=== PATIENT | female | born 2005 | race Hispanic/Latino ===

== ENCOUNTER → 2024-11-01 10:50 | Outpatient (CLI) | payer OTHER, SELFPAY ==
[2024-11-01 12:00] LABS: Add Manual Diff / Slide Review NO; Basophils Absolute Auto 0 /uL (0-100); Basophils Percent Auto 0.4 % (0-2); Eosinophils Absolute Auto 0 /uL (0-450); Eosinophils Percent Auto 0.5 % (2-4); Hematocrit 38.2 % (36-46); Hemoglobin 12.8 g/dL (12.0-16.0); Lymphocytes Absolute Auto 2400 /uL (1100-4500); Lymphocytes Percent Auto 47.8 % (25-40); Mean Corpuscular HGB Conc 33.6 % (30-36); Mean Corpuscular Hemoglobin 30.1 PG (26-34); Mean Corpuscular Volume 89.6 fL (80-100); Monocytes Absolute Auto 300 /uL (0-900); Monocytes Percent Auto 5.9 % (3-14); Neutrophils Absolute Auto 2300 /uL (1500-7000); Neutrophils Percent Auto 45.4 % (50-75); Platelet Count 242 X10^3/uL (150-400); Red Blood Cell Count 4.26 X10^6/uL (4.0-5.2); Red Cell Distribution Width 15.1 % (11.6-14.8); White Blood Cell Count 5.1 X10^3/uL (4.5-11.0)
[2024-11-01 12:01] LABS: Appearance Urine UA CLEAR; Bilirubin Urine UA NEGATIVE (NEGATIVE); Color Urine UA YELLOW; Glucose Urine UA NEGATIVE (Negative); Ketones Urine UA NEGATIVE (NEGATIVE); Leukocyte Esterase Urine UA TRACE (NEGATIVE); Nitrite Urine UA NEGATIVE (Negative); Occult Blood Urine UA TRACE-INTACT (Negative); Protein Urine UA NEGATIVE (Negative); Specific Gravity Urine UA <=1.005 (1.000-1.035); Urobilinogen Urine UA 0.2 E.U./dL (0.2)
[2024-11-01 12:15] LABS: Bacteria Urine Occasional (0-1); RBC Urine 1-5/HPF (0-5/HPF); Squamous Epithelial Cell Urine 1-5 /HPF (0-5/HPF); Urine Volume 10mL (spun); WBC Urine 1-5/HPF (0-5/HPF)
[2024-11-01 15:18] LABS: Hepatitis B Surface Antigen NEGATIVE s/c (NEGATIVE); Rubella Antibody IgG 13.9 IU/mL (>15)
[2024-11-01 15:30] LABS: HIV 1 & 2 Ab/Ag 4th Gen Combo NEGATIVE (NEGATIVE); Hep C Virus Ab w/Reflex Quant NEGATIVE s/c (NEGATIVE)
[2024-11-02 06:05] LABS: RPR Screen Non Reactive (Non Reactive)
[2024-11-02 10:08] LABS: Varicella IgG Antibody Non Reactive (Non Reactive)
== END ==
LOC: LAB 10:51
PROVIDERS: Referring Provider Family Medicine; Visit Provider Family Medicine
DX: Z34.00 Encounter for supervision of normal first pregnancy, unspecified trimester (principal)
CPT/HCPCS: 36415; 80055; 81003; 81015; 86787; 86803; 86850; 86900; 86901; 87086; 87389

== ENCOUNTER → 2025-01-01 11:33 | Outpatient (CLI) | payer OTHER, SELFPAY ==
[2025-01-03 20:36] LABS: AFP, Serum 35.6 ng/mL (.); Calc Gestational Age As provided (.); Estriol, Free 1.69 ng/mL (.); Inhibin A, Dimeric 239.84 pg/mL (.); Inhibin A, MoM 1.42 (.); Maternal Ethnicity Other (.); Maternal Weight 136 lbs (.); Number of Fetuses No (.); OSBR Risk 1 IN 10000 (.); Results Report (.); Test Results *Screen Negative* (.); hCG, Serum 59654 mIU/mL (.)
== END ==
PROVIDERS: Referring Provider Family Medicine; Visit Provider Family Medicine
DX: Z34.00 Encounter for supervision of normal first pregnancy, unspecified trimester (principal)
CPT/HCPCS: 36415; 82105; 82677; 84702; 86336

== ENCOUNTER → 2025-02-05 06:42 | Outpatient (CLI) | payer OTHER, SELFPAY ==
--- NOTE | 2025-02-05 06:43 | DI.US.S_ITS ---
PROCEDURE: US OB >= 14 WEEKS FETUS INDICATIONS: Anatomy Scan complete OUTSIDE/PRIOR DATING DATA: Last menstrual period (LMP): 09/08/2024. LMP-based estimated date of delivery (TRACE): 06/06/2025. First dating scan (date and location): 11/01/2024. Estimated date of delivery (TRACE) from first dating scan: 06/14/2025. The calculations are made using the ultrasound TRACE of 06/14/2025. TECHNIQUE: Real-time scanning was performed of the fetus, with image documentation and biometric measurements. COMPARISON: None. FINDINGS: General: A single living intrauterine gestation is present. Presentation: Vertex. Placenta: Placental position is posterior , without previa. Amniotic fluid index: 13.4 cm, normal range is 5-24 cm. Single deepest vertical pocket is 3.6 cm. heart rate: 145 beats per minute. Maternal cervical canal: 3.3 cm long. Normal lower limit is 2.5 cm. biometrics: Biparietal diameter: 5.1 cm 21 weeks 4 days Head circumference: 19.5 cm 21 weeks 5 days Abdominal circumference: 16.4 cm 21 weeks 3 days Femur length: 3.7 cm 21 weeks 6 days Clinically estimated gestational age: 21 weeks 4 days Composite gestational age from present scan: 21 weeks 5 days Estimated weight and percentile: 439 g 48th percentile Anatomic survey: Neuro: Ventricles are non-dilated at less than 10 mm. Cisterna magna is normal at 3-11 mm. Cerebellum is normal in size and morphology. Nuchal skin fold: Normal at less than 6 mm between 14-21 weeks gestational age. Face: Nose and lips, facial profile are normal. Spine: No evidence for spina bifida. Heart: 4-chambered heart is present, with normal ventricular outflow tracts. Diaphragm: Diaphragm is intact. Stomach: Left-sided stomach is present. Kidneys: No hydronephrosis. Normal is less than 5 mm in 2nd trimester, less than 7 mm in 3rd trimester. Cord: 3-vessel cord has orthotopic insertion. Bladder: Normal in size. Extremities: All 4 extremities identified. IMPRESSION: Single live intrauterine with gestational age today of 21 weeks 5 days. Anatomy is within normal limits. We strive to produce accurate, complete, and clear reports of imaging services. To assist us in improving patient care, this report was composed using standard report templates and voice recognition software. Therefore, it may contain abnormal punctuation, insertions and/or omissions. Occasional wrong-word or sound-alike substitutions may occur. Though we review the report and make efforts to correct it, we do recommend that the report be read carefully in proper context to recognize any text inaccuracies. Dictated by: Jasmyne Cartwright M.D. on 02/05/2025 at 13:19 Approved by: Jasmyne Cartwright M.D. on 02/05/2025 at 13:21
== END ==
PROVIDERS: Referring Provider Family Medicine; Visit Provider Family Medicine
DX: Z36.89 Encounter for other specified antenatal screening (principal); Z3A.21 21 weeks gestation of pregnancy
CPT/HCPCS: 76811

== ENCOUNTER → 2025-03-01 07:53 | Outpatient (CLI) | payer OTHER, SELFPAY ==
[2025-03-01 09:35] LABS: Hematocrit 30.9 % (36-46); Hemoglobin 10.7 g/dL (12.0-16.0)
[2025-03-01 10:16] LABS: GTT (PREG) 1 Hour PP 50gm Dose 109 mg/dL (76-139)
== END ==
PROVIDERS: PCP Family Medicine; Referring Provider Family Medicine; Visit Provider Family Medicine
DX: Z34.92 Encounter for supervision of normal pregnancy, unspecified, second trimester (principal)
CPT/HCPCS: 36415; 82950; 85014; 85018

== ENCOUNTER 2025-05-30 00:49 | Observation (INO) | payer OTHER, SELFPAY | END 2025-05-30 03:03 | disposition home or self-care (01) | LOC: LABOR 00:51 | PROVIDERS: Admitting Provider Obstetrics & Gynecology; PCP Family Medicine; Referring Provider Obstetrics & Gynecology; Visit Provider Obstetrics & Gynecology | DX: O47.1 False labor at or after 37 completed weeks of gestation (principal); Z3A.37 37 weeks gestation of pregnancy | CPT/HCPCS: 59025; G0378; G0379 ==

== ENCOUNTER 2025-06-04 02:09 | Outpatient (CLI) | payer OTHER, SELFPAY | END 2025-06-04 03:53 | disposition home or self-care (01) | LOC: OB 06:35 | PROVIDERS: PCP Family Medicine; Referring Provider Family Medicine; Visit Provider Family Medicine | DX: O36.8130 Decreased fetal movements, third trimester, not applicable or unspecified (principal); O47.1 False labor at or after 37 completed weeks of gestation; O99.213 Obesity complicating pregnancy, third trimester; E66.9 Obesity, unspecified; Z3A.38 38 weeks gestation of pregnancy | CPT/HCPCS: 59025; G0378; G0379 ==

== ENCOUNTER 2025-06-05 18:35 | Outpatient (CLI) | payer OTHER, SELFPAY | END 2025-06-05 19:49 | disposition home or self-care (01) | LOC: LABOR 18:46 → OB 06-06 06:16 | PROVIDERS: PCP Family Medicine; Referring Provider Family Medicine; Visit Provider Family Medicine | DX: O47.1 False labor at or after 37 completed weeks of gestation (principal); Z3A.38 38 weeks gestation of pregnancy | CPT/HCPCS: 59025; G0378; G0379 ==

== ENCOUNTER 2025-06-08 23:03 | Inpatient (IN) | payer OTHER, SELFPAY ==
[2025-06-08] MEDS: LACTATED RINGERS 1,000 ML 100 ML IV (23:30)
[2025-06-08 23:50] LABS: Add Manual Diff / Slide Review NO; Hematocrit 39.5 % (36-46); Hemoglobin 13.6 g/dL (12.0-16.0); Lymphocytes Absolute Auto 3600 /uL (1100-4500); Mean Corpuscular HGB Conc 34.3 % (30-36); Mean Corpuscular Hemoglobin 31.7 PG (26-34); Mean Corpuscular Volume 92.6 fL (80-100); Platelet Count 186 X10^3/uL (150-400)
--- NOTE | 2025-06-09 00:23 | PM.AN.REGBLK ---
Regional Block Pre-procedure Procedure: Continuous Lumbar Epidural for L&D PMH/ROS narrative: active labor PSH/Anesthesia history narrative: pt states difficulty getting numb for dental work, otherwise no issues with anesthesia ASA Class: II Labs: Hct 39.5 % (36-46) 06/08/25 23:41 Plt Count 186 X10^3/uL (150-400) 06/08/25 23:41 Medications: Current Medications Generic Name Dose Route Start Last Admin Trade Name Freq PRN Reason Stop Dose Admin Carboprost Tromethamine 250 mcg 06/08/25 23:40 Carboprost 250 Mcg/Ml Ampul IM Q90M PRN Bleeding Oxytocin/Lactated Ringer's 30 unit in 500 mls @ 200 mls/hr 06/08/25 23:40 Oxytocin Premix IV CONT PRN Bleeding Protocol Tranexamic Acid 1,000 mg/ 100 mls @ 600 mls/hr 06/08/25 23:40 Sodium Chloride IV NOW PRN Bleeding Lactated Ringer's 1,000 mls @ 100 mls/hr 06/08/25 23:45 Lactated Ringers IV 06/09/25 09:44 CONT ZAID Lidocaine HCl 20 ml 06/08/25 23:40 Lidocaine 1% 20 Ml INJ INTRA-OP PRN Post Delivery Methylergonovine Maleate 0.2 mg 06/08/25 23:40 Methylergonovine 0.2 Mg Tablet PO Q6HR PRN Heavy Bleeding Methylergonovine Maleate 0.2 mg 06/08/25 23:40 Methylergonovine 0.2 Mg/Ml Vial IM NOW PRN Bleeding Mineral Oil 30 ml 06/08/25 23:40 Mineral Oil 30 Ml Udc TOP PRN PRN Version Misoprostol 800 mcg 06/08/25 23:40 Misoprostol 200 Mcg Tablet PA NOW PRN Bleeding Misoprostol 400 mcg 06/08/25 23:40 Misoprostol 200 Mcg Tablet SL NOW PRN Bleeding Naloxone HCl 0.2 mg 06/08/25 23:40 Naloxone 0.4 Mg/Ml Vial IV Q2MIN PRN Opiate Reversal Oxytocin 10 unit 06/08/25 23:40 Oxytocin 10 Unit/Ml Vial IM NOW PRN Bleeding Allergies: Allergies Allergy/AdvReac Type Severity Reaction Status Date / Time No Known Drug Allergies Allergy Verified 06/05/25 19:53 --: h and p obstained. rba discussed. pt consent to proceed. drape and prep using sterile technique. l3 l4 is id'd. lido 1% 3 cc skin wheel with tuohy introducer. WAYNE to saline. used 27 g pencil point needle + csf at 0008, lido 1% 0.5 mL injected into intrathecal space, negative heme and negative paresthesias. threaded catheter and test dose. secured sterile with tega derm. Procedure Insertion date: 06/09/25 Insertion time: 00:09 Prep/Local: betadine x3 (chloraprep) and 1% lidocaine (3 cc) Interspace: l3 l4 Patient position: sitting Needle: 18 gauge Stacia Loss of resistance with: saline WAYNE at (cm): 6 Catheter placed at SKIN (cm): 12 Sensory level: t8 Insertion: No CSF, No Blood, No Paresthesia with insertion, No Paresthesia with injection and No Test dose reaction Initial Medications BOLUS DOSE time: 00:14 BOLUS DOSE (mL): 3 BOLUS DOSE med: other (infusate) Infusion INFUSION: 0.125% bupivacaine and with fentanyl 2 mcg/mL Initial rate (mL/hr): 8 Post-procedure Anesthesia date START: 06/08/25 Anesthesia time START: 23:56 Anesthesia date END: 06/09/25 Anesthesia time END: 07:54 Post-procedure Anesthesia Assessment: Yes CV function: HR/BP stable, Yes Resp function: RR/sat/airway adequate, Yes Post-op hydration adequate, Yes Pain control adequate, Yes Nausea & vomiting absent, Yes Temperature > 36 C, Yes Mental status appropriate and Yes Anesthesia complications
[2025-06-09 01:54] VITALS: BP 106/55
[2025-06-09] MEDS: LACTATED RINGERS 1,000 ML 100 ML IV ×2 (06:10→06:11)
[2025-06-09] MEDS: FENT 2MCG/ML BUPIV 0.125% EPI 200 MCG/100 ML PLAST..BAG 8 MCG EPIDURAL (06:25)
--- NOTE | 2025-06-09 08:26 | P.PCNOB_ITS ---
Labor & Delivery Delivery date: 06/09/25 Delivery Time: 07:44 Intrapartal Events: None Induction method: none Delivery monitor: external FHT Route of delivery: L&D Laceration Description: Perineal - 1st Degree Estimated blood loss (mL): 150 Anesthesia Type: Epidural Complications: none Narrative: PROCEDURE: 20 yo G1 at 39w2d presented with MANAN and was admitted to Labor and Delivery. She was managed expectantly. The patient progressed through the 1st stage over. ROM occured at 01:03 with clear fluid. Pain was controlled with epidural. The patient progressed through the 2nd stage and delivered a viable female with APGARs 8/9 at 07:44 via SHEYLA. The cord was cut and clamped after it stopped pulsating. The placenta delivered with gentle cord traction, and appeared complete. The perineum and vagina were inspected with a 1st degree perineal that was repaired in the usual fashion. Needle and sponge counts were correct.? The vagina was inspected and no items were left in situ. PREPROCEDURE DIAGNOSIS: Intrauterine at 39w2d GBS neg RH positive POSTPROCEDURE DIAGNOSIS: Intrauterine at 39w2d, delivered Same as preprocedure [place] Baby Avalynn: gender: Female Presentation: vertex Position: Left Occiput Anterior Placenta delivery description: Spontaneous Cord Vessel Description: 3 Vessels score (1 min): 8 score (5 min): 9 Plan for aftercare: Routine care
--- NOTE | 2025-06-09 08:34 | PM.OBHP.IH.1 ---
OB HPI Date/Time Date of admission: 06/08/25 Date Patient Seen: 06/09/25 Time Patient Seen: 07:30 History of Present Condition Chief complaint: NST TRACE Calculator Estimated Delivery Date Method Current WG Current Estimate 06/14/25 Ultrasound #1 39w 2d Other Estimates 06/06/25 LMP (Certain) 40w 3d Estimated Gestational Age (weeks): 39w2d : 1 care: good care Dating criteria OB: based on 1st trimester US only Obstetrical complications: none Medical complications OB: none Preadmission Labs Last OB Lab Results: Blood Type A Positive 06/08/25, 23:41 Antibody Screen Negative 06/08/25, 23:41 Hct, (36-46) 39.5 % 06/08/25, 23:41 Hgb, (12.0-16.0) 13.6 g/dL 06/08/25, 23:41 Hep Bs Antigen, (NEGATIVE) Negative s/c 11/01/24, 10:54 Hepatitis C Antibody, (NEGATIVE) Negative s/c 11/01/24, 10:54 Rubella Antibody, (>15) 13.9 IU/mL L 11/01/24, 10:54 VZV IgG Antibody, (Non Reactive) Non reactive 11/01/24, 10:54 Glucose 1 Hr 50 gm, (76-139) 109 mg/dL 03/01/25, 09:01 Group B Strep (PCR) Neg for grp b strep 05/21/25, 12:00 Evaluation Evaluation Baseline heart rate: 140 Variability: Moderate (6-25) monitor accelerations: Present Monitor Decelerations: Absent Contraction Frequency (minutes): 2 Uterine Contraction Intensity: Strong/Firm Category of Tracing: Reactive Status: Category l Dilation (cm): 7 Effacement (%): 100 Dilation: >/=5 cm Effacement: >/=80% station: -1 [facility] Medical History (Updated 06/05/25 @ 10:47 by Stephan Michaud MD) Wrist fracture Menorrhagia Ovarian cyst (~2022) Surgical History (Updated 10/22/24 @ 15:09 by Lily Velasco, STEVO) No pertinent past surgical history Family History (Updated 10/22/24 @ 15:11 by Lily Velasco, STEVO) Sister Gestational diabetes PCOS (polycystic ovarian syndrome) Mother Gestational diabetes Ovarian cyst Grandmother Kidney stones Father Family estrangement Social History marital status: number of children: 0 household members: spouse lives independently: Yes [facility] pets and animals: No education level: high school occupational status: unemployed current occupational exposures/hazards: No special ruma needs: No travel history: recent (domestic only) seatbelt use: always water heater temp set < 120 deg: Yes working smoke detector in home: Yes fire extinguisher in home: Yes carbon monox detector in home: Yes firearms in home: No do you feel safe at home: Yes Smoking Status: Never smoker second hand exposure: No alcohol intake: never substance use type: does not use during the past year weight has: remained stable well-balanced diet: daily or most days daily servings fruits/ve-4 caffeine: No Type(s) of exercise: other (stretching) and running Meds Home Medications and Allergies Home Medications ?Medication ?Instructions ?Recorded ?Confirmed ?Type vitamin-ferrous sulfate 1 tab PO DAILY 10/22/24 06/09/25 History 27 mg iron-folic acid 0.8 mg tablet ferrous sulfate 134 mg (27 mg 134 mg PO Q OTHER DAY #60 tabs 03/26/25 06/09/25 Rx iron) tablet electric breast pump #1 ea 05/28/25 Rx Allergies Allergy/AdvReac Type Severity Reaction Status Date / Time No Known Drug Allergies Allergy Verified 06/09/25 01:53 Review of Systems Review of Systems Narrative: + regular contractions - LOF + movement - vaginal bleeding OB Exam Narrative Exam Narrative: GEN: uncomfortable appearing, breathing through contractions, Pulm: breathing comfortably on RA ABd: gravid MSK: laying in bed, moving all extremities neuro: non-focal Objective Labs 06/08/25 23:41 Labs: Laboratory Results - last 24 hr 06/08/25 23:41 WBC 9.7 RBC 4.27 Hgb 13.6 Hct 39.5 MCV 92.6 MCH 31.7 MCHC 34.3 RDW 15.1 H Plt Count 186 Neut % (Auto) 55.4 Lymph % (Auto) 36.8 [place] % (Auto) 6.3 Eos % (Auto) 0.6 L Baso % (Auto) 0.9 Neut # (Auto) 5400 Lymph # (Auto) 3600 [place] # (Auto) 600 Eos # (Auto) 100 Baso # (Auto) 100 Blood Type A Positive Antibody Screen Negative Assessment and Plan Assessment and Plan Assessment and Plan narrative: 20 yo G1 presenting at 29w1d with MANAN, managed expectantly overnight, now 39w2d and complete/+3 ready for delivery # SIUP at term: - admit to LD - continuous monitoring - Anesthesia consult - CBC, TS - GBS negative Time-Based Coding :: [TOTAL MINUTES] spent with patient and on the chart (including review of chart, obtaining history, exam, reviewing outside data, placing orders, documenting exam and treatment plan, and counseling patient) on [DATE].
[2025-06-09] MEDS: DERMOPLAST SPRAY 20% 60 ML 1 SPRAY TOP (10:25)
[2025-06-09 10:26] VITALS: TEMP 37.1
[2025-06-09] MEDS: PRENATAL VIT,CALC/IRON/FOLIC 1 TABLET 1 TAB PO (10:26)
[2025-06-09] MEDS: IBUPROFEN 600 MG TABLET PO ×2 (10:26→18:43)
[2025-06-09] MEDS: ACETAMINOPHEN 325 MG TABLET 650 MG PO ×2 (13:22→21:19)
[2025-06-09 18:43] VITALS: TEMP 37.2
[2025-06-09] MEDS: LANOLIN OINT 7 GM 1 APPLIC TOP (20:16)
[2025-06-10] MEDS: IBUPROFEN 600 MG TABLET PO ×3 (00:28→13:35)
[2025-06-10] MEDS: ACETAMINOPHEN 325 MG TABLET 650 MG PO ×3 (03:10→16:43)
[2025-06-10 06:40] LABS: Hematocrit 35.9 % (36-46); Hemoglobin 12.4 g/dL (12.0-16.0)
[2025-06-10] MEDS: DOCUSATE 100 MG CAPSULE PO (08:29)
[2025-06-10] MEDS: PRENATAL VIT,CALC/IRON/FOLIC 1 TABLET 1 TAB PO (08:29)
--- NOTE | 2025-06-10 10:49 | P.DS_ITS ---
Discharge Providers Provider Date of admission: 06/08/25 23:03 Discharge Date: 06/10/25 Primary care physician: Stephan Michaud MD Consults: 06/08/25 23:41 Consult to Anesthesiology Urgent Comment: Consulting Provider: Anesthesiologist Reason for consultation: Epidural 06/09/25 09:01 Consult to Centerless Grinder Set Up Operator Routine Comment: Discharge provider: Stephan Michaud MD Summary Hospital Course Date Patient Seen: 06/10/25 Diagnoses: # #rubella non-immune # mother Hospital Course: Admitted for normal labor on 06/08/2025. Progressed adequately without augmentation to complete dilation over the course of 8 hours. She had an uncomplicated of a live female infant with a first degree perineal laceratio that was repaired. Her course was uncomplicated. At discharge patient is ambulating well, tolerating normal diet, breast-feeding without difficulty, and pain is adequately controlled. She reports bleeding is clinical administrator than normal menses. Peripartum Data Infant Delivery Method: Natural Vaginal Laceration Description: Perineal - 1st Degree complications: none [place] 1: Gender: Female Disposition of : home Discharge Diagnosis (1) (spontaneous vaginal delivery): Status: Acute (2) Mother currently breast-feeding: Status: Acute (3) Rubella non-immune status, antepartum: Status: Acute Status at Discharge Cognitive/behavioral status at discharge: at baseline, oriented Functional status at discharge: independent ambulation Overall status at discharge: patient is progressing back to baseline Time Spent with Patient Time attestation: Total time spent providing and/or coordinating discharge services: 30 minutes Objective Labs 06/10/25 06:32 Labs: Laboratory Results - last 24 hr 06/10/25 06:32 Hgb 12.4 Hct 35.9 L Exam Narrative Exam Narrative: General: Well-appearing, well-nourished, no distress HEENT: Moist mucous membranes, no pallor CV: Regular rate and rhythm, no murmur auscultated Resp: CTAB, comfortable work of breathing Abdomen: Soft, bowel sounds present, fundus firm below umbilicus with appropriate tenderness Extremities: No edema, no calf tenderness or evidence of DVT Discharge Plan Discharge Plan Patient Disposition: Home Discharge orders & Medications Prescriptions: New oxycodone 5 mg Tablet 5 mg PO Q4HR PRN (Reason: Pain, Moderate (4-6)) Qty: 10 0RF acetaminophen 325 mg Tablet 650 mg PO Q6H PRN (Reason: Pain, Mild (1-3)) Qty: 60 1RF Dermoplast (with menthol) 20-0.5 % Aerosol 1 spray topical Q1HR PRN (Reason: Pain, Moderate (4-6)) Qty: 78 0RF ibuprofen 600 mg Tablet 600 mg PO Q6H Qty: 60 1RF polyethylene glycol 3350 17 gram/dose powder 17 g PO DAILY Qty: 510 1RF Purelan Cream 1 applic topical PRN PRN (Reason: Sore Nipples) Qty: 7 6RF Continued ferrous sulfate 134 mg (27 mg iron) tablet 134 mg PO Q OTHER DAY Qty: 60 1RF (DME) electric breast pump See Rx Instructions .Route .MEDSUPPLY Qty: 1 0RF Rx Instructions: As directed vit-ferrous sulfat-FA 27 mg iron- 0.8 mg tablet 1 tab PO DAILY Follow up/Referrals: Stephan Michaud MD [Primary Care Provider, Family Practice] - 07/23/25 12:00 pm Referral Note: Please Check in at 11:45 am on July 23 for your six week appointment. Diet/Activity/Treatments Diet: Regular Skin/Wound/Dressing Care Report to your healthcare provider any signs of infection, such as:: chills, fever, unusual drainage and unusual redness Visit Report/Discharge Packet Stand Alone Forms: Patient Portal/API, Stroke Signs & Symptoms Discharge Data Primary Care Provider: Stephan Michaud
[2025-06-10] MEDS: DERMOPLAST SPRAY 20% 60 ML 1 SPRAY TOP (16:43)
[2025-06-10] MEDS: MEASLES,MUMPS,RUBELLA VACC/PF 0.5 ML VIAL SUBCUT (19:10)
== END 2025-06-10 20:30 | disposition home or self-care (01) | DRG 807 ==
PROVIDERS: Admitting Provider Family Medicine; PCP Family Medicine; Referring Provider Family Medicine; Visit Provider Family Medicine
DX: O70.0 First degree perineal laceration during delivery (principal); Z37.0 Single live birth; Z3A.39 39 weeks gestation of pregnancy
CPT/HCPCS: 36415; 59050; 59400; 59409; 85014; 85018; 85025; 86850; 86900; 86901; G0379